=== PATIENT | male | born 1950 | race Caucasian/White ===

== ENCOUNTER 2018-06-13 04:13 | Observation (INO) | payer MEDICARE, OTHER, SELFPAY ==
[2018-06-13] VITALS (9 sets, daily range): BP systolic 101–145; BP diastolic 56–91; PULSE 45–89; RESP 16–19; TEMP 36.4–36.7; O2SAT 95–99; BMI 35.2
--- NOTE | 2018-06-13 | DI.ECHO.S_ITS ---
[facility] +---------+ [facility] +---------+ : : [address] [place] : : : : [id number] : : : : Phone: [phone]+ Echocardiogram Report + + :Name: GARLAND ROMERO Study Date: 06/13/2018 Height: 67 in : :[facility] Exam Location: IS Weight: 225 lb : : Gender: Male BSA: 2.1 m2 : :: 1950 Age: 67 yrs BP: 128/66 mmHg: :Reason For Study: Chest pain/ HTN/ Palpitations : :Ordering Physician: Imer : :Hospitalist Performed By: Rupa Page : :Referring: Dr. Bryan Curtis : + + Interpretation Summary The patient was in normal sinus rhythm during the exam. The patient had frequent PVCs during the exam. The left ventricle is normal in size. The ejection fraction is estimated to be 50-55%. There is a significant dyssynchronous contraction pattern, consistent with a conduction abnormality seen during PVCs. The right ventricle is normal in size and function. No significant valvular pathology seen. The ascending aorta is mildly enlarged. The IVC is of normal diameter and collapses greater than 50% with a sniff. This suggests a low right atrial pressure of 3 mm Hg. Procedure: A two-dimensional transthoracic echocardiogram with color flow and Doppler was performed. The study quality was technically adequate. There is no prior echocardiogram noted for this patient. The heart rate ranged between 63-77 bpm during the study. The patient was in normal sinus rhythm during the exam. The patient had frequent PVCs during the exam. Left Ventricle: There is normal left ventricular wall thickness. The left ventricle is normal in size. There is no thrombus. The ejection fraction is estimated to be 50-55%. There is a significant dyssynchronous contraction pattern, consistent with a conduction abnormality. Diastolic parameters suggest a relaxation abnormality of the left ventricle, consistent with probable normal filling pressures. Right Ventricle: The right ventricle is normal in size and function. Atria: The left atrium is mildly dilated. Right atrial size is normal. There is no Doppler evidence for an interatrial shunt. Mitral Valve: There is mild mitral annular calcification. There is trace mitral regurgitation. Aortic Valve: The aortic valve is trileaflet. The aortic valve opens well. There is no aortic valve stenosis. No aortic regurgitation is present. Tricuspid Valve: The tricuspid valve is normal in structure and function. There is a trace or physiologic amount of tricuspid regurgitation. Pulmonary artery pressures cannot be estimated because of the lack of a measurable TR jet velocity. Pulmonic Valve: The pulmonic valve is not well visualized. There is trace pulmonic regurgitation. Great Vessels: The aortic root is normal size. The ascending aorta is mildly enlarged. The pulmonary is not well visualized. The IVC is of normal diameter and collapses greater than 50% with a sniff. This suggests a low right atrial pressure of 3 mm Hg. Pericardium/ Pleura There is no pericardial effusion. There is no pleural effusion. MMode/2D Measurements & Calculations LVIDd: 4.9 cm LVOT diam: 2.1 cm LVIDs: 3.6 cm Ao root diam: 3.6 cm FS: 27.8 % asc Aorta Diam: 3.6 cm EPSS: 0.48 cm IVSd: 0.97 cm LVPWd: 0.75 cm LV schmitt. diameter/BSA (cm/m^2): 2.3 LV sys. diameter/BSA (cm/m^2): 1.7 LA A2 area: 22.7 cm2 RA long axis: 5.5 cm LA A4 area: 24.6 cm2 RA area: 15.2 cm2 LA length (vol): 6.0 cm RA vol: 35.5 ml LA vol: 79.0 ml RA : 16.7 ml/m2 LA vol index: 37.2 ml/m2 RVD1 (basal): 3.7 cm Doppler Measurements & Calculations Ao V2 max: 127.5 cm/sec LVOT Max Jerod: 65.3 cm/sec Ao V2 mean: 91.6 cm/sec LV V1 max P.7 mmHg Ao max P.5 mmHg LV V1 VTI: 13.8 cm Ao mean P.6 mmHg LITZY(I,D): 2.0 cm2 Ao V2 VTI: 23.9 cm LITZY(V,D): 1.8 cm2 sev ratio: 0.58 LITZY indexed to BSA (cm^2/m^2): 0.95 MV E max jerod: 51.3 cm/sec PA V2 max: 96.2 cm/sec MV A max jerod: 69.8 cm/sec PA V2 mean: 56.7 cm/sec MV E/A: 0.74 PA mean P.5 mmHg Med Peak E' Jerod: 4.7 cm/sec PA Accel Time: 0.08 sec E/E' med: 11.0 Lat Peak E' Jerod: 8.3 cm/sec E/E' lat: 6.2 E/e' average: 8.6 MV dec time: 0.25 sec MV P1/2t: 72.8 msec MV P1/2t max jerod: 51.0 cm/sec MVA(2t): 3.0 cm2 Reading Physician:VICTORINO
--- NOTE | 2018-06-13 04:36 | ED.CHESTPAIN ---
HPI - Chest Pain General Chief Complaint: Chest Pain Stated Complaint: little chest pressure x30 min Time Seen by Provider: 06/13/18 04:15 Source: patient and family Mode of arrival: ambulatory Limitations: no limitations History of Present Illness HPI narrative: 67-year-old nonsmoking male presents with his in the chief complaint of a sudden onset left-sided chest pressure with radiation down his left arm about 30 min prior to his arrival. He had just woken up and noticed the pressure. He describes it is heavy and aching. He denies provocation or palliation. He had a brief episode of a similar type pain yesterday in the afternoon. He admits to feeling dizzy and clammy at it's onset. He admits long distance travel over the summer when he and his flew to [place]. His last stress test was many years ago. He took a baby aspirin yesterday Related Data Home Medications Medication Instructions Recorded Confirmed atorvastatin [Lipitor] 40 mg PO QDAY #0 11/13/12 hydrochlorothiazide 25 mg PO QDAY #0 11/13/12 ramipril 10 mg PO QDAY #0 11/13/12 aspirin 81 mg PO DAILY 06/13/18 06/13/18 metoprolol tartrate 12.5 mg PO BID 06/13/18 06/13/18 Allergies Allergy/AdvReac Type Severity Reaction Status Date / Time No Known Drug Allergies Allergy Verified 06/13/18 04:24 PFSH Social History Smoking Status: Never smoker Exam Initial Vital Signs Initial Vital Signs: Vital Signs Temperature 97.5 F L 06/13/18 04:20 Pulse Rate 75 06/13/18 04:20 Respiratory Rate 18 06/13/18 04:20 Blood Pressure 145/91 H 06/13/18 04:20 Pulse Oximetry 99 06/13/18 04:20 Scores HEART Score Heart Score history: Moderately Suspicious Heart Score EKG: Non-Specific repolarization disturbance Heart Score Age: > or = 65 years old Heart Score risk factors: 1-2 risk factors Heart Score troponin: < or = to normal limit Heart Score Total: 5 Course Orders Ordered: ED Orders 06/13/18 04:25 EKG-12 Lead Stat Nitroglycerin (Nitrostat) 0.4 mg SL [id number] PRN PRN Reason: Chest Pain Last Admin: 06/13/18 04:49 Dose: 0.4 mg Discontinued Medications Aspirin (Aspirin Chew) 324 mg PO NOW ONE Stop: 06/13/18 04:44 Last Admin: 06/13/18 04:48 Dose: 324 mg Reevaluation(s) Reevaluation #1: patient pain free after NG 0.4 x1 Time: 04:52 Vital Signs - 8 hr 06/13/18 04:20 06/13/18 04:49 Temperature 97.5 F L Pulse Rate 75 75 Respiratory Rate 18 Blood Pressure 145/91 H 130/79 Pulse Oximetry 99 MDM - Chest Pain Differential Diagnosis Likely stable angina, unstable angina pectoris, atypical chest pain and st elevation myocardial infarction Medical Records Data Attestation: I reviewed the patient's medical records. Lab Data Attestation: I reviewed the patient's lab results. ECG Data Attestation: I personally reviewed and interpreted this ECG as follows: Prior ECG tracings: not available for review Discharge Plan Departure Patient Disposition: Admitted as Observation Clinical Impression: Chest pain
[2018-06-13] MEDS: ASPIRIN 81 MG TAB 324 MG PO (04:48)
[2018-06-13] MEDS: NITROGLYCERIN 0.4 MG SL TAB SL (04:49)
--- NOTE | 2018-06-13 05:19 | DI.RAD.S_ITS ---
PROCEDURE: XR CHEST 1V INDICATIONS: pain TECHNIQUE: One view of the chest was acquired. COMPARISON: None. FINDINGS: Surgical changes and devices: None. Lungs and pleura: No pleural effusions or pneumothorax. Lungs are clear. Mediastinum: Mediastinal contours appear normal. Heart size is normal. Bones and chest wall: No suspicious bony lesions. Overlying soft tissues appear unremarkable. IMPRESSION: Reduced inspiratory volume, otherwise normal for age, source of current symptoms is not seen. Dictated by: Javier Malhotra M.D. on 06/13/2018 at 8:10 Approved by: Javier Malhotra M.D. on 06/13/2018 at 8:10
[2018-06-13] MEDS: SODIUM CHLORIDE 0.9% 1,000 ML 150 ML IV (05:26)
[2018-06-13 05:27] LABS: Add Manual Diff / Slide Review NO; Basophils Percent Auto 0.8 % (0-2); Hematocrit 46.4 % (41-53); Hemoglobin 15.8 g/dL (13.5-17.5); Lymphocytes Percent Auto 55.8 % (25-40); Mean Corpuscular HGB Conc 33.9 % (30-36); Mean Corpuscular Hemoglobin 30.1 PG (26-34); Mean Corpuscular Volume 88.6 fL (80-100); Monocytes Percent Auto 8.9 % (3-14); Neutrophils Absolute Auto 2400 /uL (3000-5900); Neutrophils Percent Auto 31.5 % (50-75); Platelet Count 228 X10^3/uL (150-400); Red Blood Cell Count 5.24 X10^6/uL (4.5-5.9); Red Cell Distribution Width 13.3 % (11.6-14.8); White Blood Cell Count 7.7 X10^3/uL (4.5-11.0)
[2018-06-13 05:37] LABS: Alanine Aminotransferase 42 IU/L (21-72); Albumin 4.2 g/dL (3.5-5.0); Albumin Globulin Ratio 1.3 (1.0-2.8); Alkaline Phosphatase 65 U/L (38-126); Aspartate Aminotransferase 29 IU/L (17-59); Bilirubin Total 0.6 mg/dL (0.2-1.3); Blood Urea Nitrogen 29 mg/dL (9-20); Calcium 8.7 mg/dL (8.4-10.2); Carbon Dioxide 25 mmol/L (22-32); Chloride 102 mmol/L (98-107); Creatine Kinase 96 U/L (55-170); Estimated Glomerular Filt Rate > 60.0 mL/min (>60); Globulin 3.2 g/dL (1.7-4.1); Glucose 115 mg/dL (80-110); HEMOLYSIS 25 (0-50); Lipase 167 U/L (23-300); Sodium 139 mmol/L (137-145); Total Protein 7.4 g/dL (6.3-8.2)
[2018-06-13 05:49] LABS: Troponin I < 0.012 ng/mL (0.01-0.034)
--- NOTE | 2018-06-13 06:49 | PM.HP.1 ---
History of Present Illness Date Patient Seen: 06/13/18 Chief complaint: little chest pressure x30 min Narrative: The patient is a 67-year-old male who presented to the ED with sudden onset of chest discomfort. Localized to the left aspect of the chest with radiation to the left arm. Pain is described to have pressure quality. Magnitude 3/10. The pain radiated to left shoulder and mid-forearm (no numbness or tingling). Prior to CP onset patient was sleeping. He woke up to use the restroom (was not awakened by chest discomfort). Associated symptoms include dizziness, sensation of an abnormal heart beat, and diaphoresis. Denies dyspnea, lightheadedness, disorientation, nausea or vomiting. patient experienced similar chest discomfort yesterday and intermittently in the past week; however, these were not associated with dizziness, palpitations, or diaphoresis. Typically last 1-2 hours then self-resolved. Patient has been experiencing intermittent periods of palpitations or an irregular heart rhythm for sometime. Recent been told by his PCP that his heart is skiping a beat. PMH is significant for HTN (dx 18yrs ago, mildly elevated), HLD (poorly controlled) and obesity (BMI 35). He does take baby aspirin daily. No prior history of an [place] or other cardiac events. Family history significant for hypertension. Patient had a stress test and an echo, 6 yrs ago prior to back surgery. [employer] on ASA 81 mg daily, ACEi, BB, and statin. Does not follow w/ cardiology. Patient History Family & Social History Safety & Behavioral: Feels Safe in Current Yes Environment Been Physically Hurt or No Threatened By a Person Tobacco & Substance use: Smoking Status Never smoker alcohol intake frequency 0-2 drinks per day no drug use Meds Home Medications Medication Instructions Recorded Confirmed Type atorvastatin [Lipitor] 40 mg PO QDAY #0 11/13/12 06/13/18 History hydrochlorothiazide 37.5 mg PO QDAY #0 11/13/12 06/13/18 History ramipril 10 mg PO QDAY #0 11/13/12 06/13/18 History aspirin 81 mg PO DAILY 06/13/18 06/13/18 History metoprolol tartrate 12.5 mg PO BID 06/13/18 06/13/18 History Allergies Allergy/AdvReac Type Severity Reaction Status Date / Time No Known Drug Allergies Allergy Verified 06/13/18 04:24 Review of Systems Review of Systems All systems reviewed & are unremarkable except as noted in HPI and below Exam Vital Signs (past 8 hours): - 06/13/18 04:20 06/13/18 04:49 06/13/18 04:55 Temperature 97.5 F L Pulse Rate 75 75 89 Respiratory Rate 18 Blood Pressure 145/91 H 130/79 115/79 Blood Pressure [Right Arm] Pulse Oximetry 99 06/13/18 05:00 06/13/18 05:51 06/13/18 06:11 Temperature 97.7 F Pulse Rate 72 75 58 L Respiratory Rate 16 18 16 Blood Pressure 128/66 Blood Pressure [Right Arm] 120/74 101/70 Pulse Oximetry 95 98 97 Oxygen Delivery Method Room Air Narrative Exam Narrative: Constitutional: NAD Neurologic: AOx3, no focal neurological deficits Head: NC, AT Eyes: PERRL, EOMI, Ears: external ears normal, no otorrhea Nose: external nose normal, no rhinorrhea or epistaxis Throat: MMM, oropharynx w/o exudate Neck: no masses, lymphadenopathy, or JVD Chest / Respiratory: equal chest rise, unlabored respiratory effort, no tachypnea, CTAB Heart / CV: S1S2, fairly frequent ectopic beats, no murmur Abdomen / GI: round, NT, ND, + BS, no organomegaly : no suprapubic tenderness, no CVA Peripheral / Vascular: warm to touch, DP and PT pulses palpable, no edema Musc: full ROM of upper and lower extremities, adequate muscle tone and bulk Skin: no ecchymosis or suspicious lesions / ulcers Objective Labs Result Diagrams: 06/13/18 04:20 06/13/18 04:20 Labs: Laboratory Results - last 24 hr 06/13/18 06/13/18 04:20 04:20 WBC 7.7 RBC 5.24 Hgb 15.8 Hct 46.4 MCV 88.6 MCH 30.1 MCHC 33.9 RDW 13.3 Plt Count 228 Neut % (Auto) 31.5 L Lymph % (Auto) 55.[address] [facility] % (Auto) 8.9 Eos % (Auto) 3.0 Baso % (Auto) 0.8 Neut # (Auto) 2400 L Sodium 139 Potassium 4.0 Chloride 102 Carbon Dioxide 25 BUN 29 H Creatinine 1.00 Estimated GFR > 60.0 BUN/Creatinine Ratio 29.0 H Glucose 115 H Calcium 8.7 Total Bilirubin 0.6 AST 29 ALT 42 Alkaline Phosphatase 65 Total Creatine Kinase 96 CK-MB (CK-2) TNP CK-MB (CK-2) Rel Index TNP Troponin I < 0.012 Total Protein 7.4 Albumin 4.2 Globulin 3.2 Albumin/Globulin Ratio 1.3 Lipase 167 Assessment & Plan Plan: Assessment/Plan Narrative: Chest pain Initial troponin negative and EKG nonischemic. No overt e-lyte abnormalities. HEART score of 5 (heart hx +1, EKG non-specific 1+, age 2+, RF 1+) Received 325 ASA in ED. CP responsive to nitro. - telemetry monitoring - trend troponins - EKG with acute episode of chest pain - echocardiogram, stress test - risk stratify: A1C, FLP - continue ASA 81 mg QD, BB, and ACEi - NPO for stress test - CXR pending Palpitations - echo - check TSH HTN, suboptimally controlled, 140/85 at home (by report) - resume [employer] ACEi and BB - on metoprolol 12.5 mg BID, will trend BP and HR, consider increasing to 25 mg BID - hold hctz, has a tendency towards e-lyte depletion, which could potentiate an arrythmia - K is 4, will check Mg HLD, poorly controlled per patient's history - continue statin, may need to change to another more potent statin - FLP Obesity, BMI 35 - weight reduction and lifestyle modification encouraged
--- NOTE | 2018-06-13 07:04 | P.HP_ITS ---
History of Present Illness Date Patient Seen: 06/13/18 Chief complaint: little chest pressure x30 min Narrative: The patient is a 67-year-old male who presented to the ED with sudden onset of chest discomfort. Localized to the left aspect of the chest with radiation to the left arm. Pain is described to have pressure quality. Magnitude 3/10. The pain radiated to left shoulder and mid-forearm ( no numbness or tingling). Prior to CP onset patient was sleeping. He woke up to use the restroom (was not awakened by chest discomfort). Associated symptoms include dizziness, sensation of an abnormal heart beat, and diaphoresis. Denies dyspnea, lightheadedness, disorientation, nausea or vomiting. patient experienced similar chest discomfort yesterday and intermittently in the past week; however, these were not associated with dizziness, palpitations, or diaphoresis. Typically last 1-2 hours then self- resolved. Patient has been experiencing intermittent periods of palpitations or an irregular heart rhythm for sometime. Recent been told by his PCP that his heart is skiping a beat. PMH is significant for HTN (dx 18yrs ago, mildly elevated), HLD (poorly controlled) and obesity (BMI 35). He does take baby aspirin daily. No prior history of an [place] or other cardiac events. Family history significant for hypertension. Patient had a stress test and an echo, 6 yrs ago prior to back surgery. [employer] on ASA 81 mg daily, ACEi, BB, and statin. Does not follow w/ cardiology. Patient History Family & Social History Safety & Behavioral: Feels Safe in Current Yes Environment Been Physically Hurt or No Threatened By a Person Tobacco & Substance use: Smoking Status Never smoker alcohol intake frequency 0-2 drinks per day no drug use Meds Home Medications Medication Instructions Recorded Confirmed Type atorvastatin [Lipitor] 40 mg PO QDAY #0 11/13/12 06/13/18 History hydrochlorothiazide 37.5 mg PO QDAY #0 11/13/12 06/13/18 History ramipril 10 mg PO QDAY #0 11/13/12 06/13/18 History aspirin 81 mg PO DAILY 06/13/18 06/13/18 History metoprolol tartrate 12.5 mg PO BID 06/13/18 06/13/18 History Allergies Allergy/AdvReac Type Severity Reaction Status Date / Time No Known Drug Allergies Allergy Verified 06/13/18 04:24 Review of Systems Review of Systems All systems reviewed & are unremarkable except as noted in HPI and below Exam Vital Signs (past 8 hours): - 06/13/18 04:20 06/13/18 04:49 06/13/18 04:55 Temperature 97.5 F L Pulse Rate 75 75 89 Respiratory Rate 18 Blood Pressure 145/91 H 130/79 115/79 Blood Pressure [Right Arm] Pulse Oximetry 99 06/13/18 05:00 06/13/18 05:51 06/13/18 06:11 Temperature 97.7 F Pulse Rate 72 75 58 L Respiratory Rate 16 18 16 Blood Pressure 128/66 Blood Pressure [Right Arm] 120/74 101/70 Pulse Oximetry 95 98 97 Oxygen Delivery Method Room Air Narrative Exam Narrative: Constitutional: NAD Neurologic: AOx3, no focal neurological deficits Head: NC, AT Eyes: PERRL, EOMI, Ears: external ears normal, no otorrhea Nose: external nose normal, no rhinorrhea or epistaxis Throat: MMM, oropharynx w/o exudate Neck: no masses, lymphadenopathy, or JVD Chest / Respiratory: equal chest rise, unlabored respiratory effort, no tachypnea, CTAB Heart / CV: S1S2, fairly frequent ectopic beats, no murmur Abdomen / GI: round, NT, ND, + BS, no organomegaly : no suprapubic tenderness, no CVA Peripheral / Vascular: warm to touch, DP and PT pulses palpable, no edema Musc: full ROM of upper and lower extremities, adequate muscle tone and bulk Skin: no ecchymosis or suspicious lesions / ulcers Objective Labs Result Diagrams: 06/13/18 04:20 06/13/18 04:20 Labs: Laboratory Results - last 24 hr 06/13/18 06/13/18 04:20 04:20 WBC 7.7 RBC 5.24 Hgb 15.8 Hct 46.4 MCV 88.6 MCH 30.1 MCHC 33.9 RDW 13.3 Plt Count 228 Neut % (Auto) 31.5 L Lymph % (Auto) 55.8 H [place] % (Auto) 8.9 Eos % (Auto) 3.0 Baso % (Auto) 0.8 Neut # (Auto) 2400 L Sodium 139 Potassium 4.0 Chloride 102 Carbon Dioxide 25 BUN 29 H Creatinine 1.00 Estimated GFR > 60.0 BUN/Creatinine Ratio 29.0 H Glucose 115 H Calcium 8.7 Total Bilirubin 0.6 AST 29 ALT 42 Alkaline Phosphatase 65 Total Creatine Kinase 96 CK-MB (CK-2) TNP CK-MB (CK-2) Rel Index TNP Troponin I < 0.012 Total Protein 7.4 Albumin 4.2 Globulin 3.2 Albumin/Globulin Ratio 1.3 Lipase 167 Assessment & Plan Plan: Assessment/Plan Narrative: Chest pain Initial troponin negative and EKG nonischemic. No overt e-lyte abnormalities. HEART score of 5 (heart hx +1, EKG non-specific 1+, age 2+, RF 1+) Received 325 ASA in ED. CP responsive to nitro. - telemetry monitoring - trend troponins - EKG with acute episode of chest pain - echocardiogram, stress test - risk stratify: A1C, FLP - continue ASA 81 mg QD, BB, and ACEi - NPO for stress test - CXR pending Palpitations - echo - check TSH HTN, suboptimally controlled, 140/85 at home (by report) - resume [employer] ACEi and BB - on metoprolol 12.5 mg BID, will trend BP and HR, consider increasing to 25 mg BID - hold hctz, has a tendency towards e-lyte depletion, which could potentiate an arrythmia - K is 4, will check Mg HLD, poorly controlled per patient's history - continue statin, may need to change to another more potent statin - FLP Obesity, BMI 35 - weight reduction and lifestyle modification encouraged
[2018-06-13] MEDS: RAMIPRIL 5 MG CAPSULE 10 MG PO (08:28)
[2018-06-13] MEDS: ATORVASTATIN 20 MG TABLET 40 MG PO (08:28)
[2018-06-13] MEDS: HEPARIN 5,000 UNIT/ML VIAL 5000 UNIT SUBCUT (08:30)
[2018-06-13] MEDS: METOPROLOL IR 12.5 MG TABLET PO (08:31)
[2018-06-13 08:50] LABS: Hemoglobin A1C% w Est Avg Glu 6.1 % (4.0-6.0)
[2018-06-13 08:57] LABS: Cholesterol 170 mg/dL (140-199); HDL Cholesterol 34 mg/dL (40-60); LDL Cholesterol Calculated 97 mg/dL (<100); Triglycerides 196 mg/dL (35-150)
[2018-06-13 08:59] LABS: Magnesium 2.1 mg/dL (1.6-2.3)
--- NOTE | 2018-06-13 09:05 | CM.DANOTE ---
Discharge Planning/Care Management DCP: assessment: case received, EMR reviewed and met with pt. Introduced self and role. Pt is a 67 year old male who admitted early this mornin to care of hospitalist team. Payer: Medicare and [employer] PCP: Dr. Curtis. PT with s/s chest pain radiating to L arm, per H&P. Plan was for NPO and stress test today. Pt says he just saw the physician and was told that there was no availability at for this test today. He is waiting for further clarity re POC. If home today and outpt testing he says his will be picking him up. P: follow prn as POC unfolds. CM Discharge Assessment Start: 06/13/18 09:04 Freq: Status: Active Protocol: Document 06/13/18 09:04 ITV (Rec: 06/13/18 09:05 ITV [id number]) Discharge Planning Assessment Advance Directives? Yes History Provided By Patient Medical Record Prior Living Arrangements House Household Members spouse Independent with ADL's Yes Is patient alert and oriented? Yes Whiteboard Updated in Patient Room with Yes name and ext. # of Scrapper Review Status In Process Next Review Type Continued Stay Review
[2018-06-13 09:26] LABS: Thyroid Stimulating Hormone 1.95 uIU/mL (0.47-4.68)
[2018-06-13 10:53] LABS: Troponin I < 0.012 ng/mL (0.01-0.034)
--- NOTE | 2018-06-13 12:07 | PM.DS.1 ---
History of Present Illness Date Patient Seen: 06/13/18 Time Patient Seen: 12:08 Chief complaint: little chest pressure x30 min Narrative: 67-year-old male who presented to the ED with sudden onset of chest discomfort. Localized to the left aspect of the chest with radiation to the left arm. Pain is described to have pressure quality. Magnitude 3/10. The pain radiated to left shoulder and mid-forearm (no numbness or tingling). Prior to CP onset patient was sleeping. He woke up to use the restroom (was not awakened by chest discomfort). Associated symptoms include dizziness, sensation of an abnormal heart beat, and diaphoresis. Denies dyspnea, lightheadedness, disorientation, nausea or vomiting. Patient experienced similar chest discomfort the day before admission and intermittently in the week prior; however, these were not associated with dizziness, palpitations, or diaphoresis. Typically last 1-2 hours then self-resolved. Patient has been experiencing intermittent periods of palpitations or an irregular heart rhythm for sometime. Recent been told by his PCP that his heart is skiping a beat. PMH is significant for HTN (dx 18yrs ago, mildly elevated), HLD (poorly controlled) and obesity (BMI 35). He does take baby aspirin daily. No prior history of an [place] or other cardiac events. Family history significant for hypertension. Patient had a stress test and an echo, 6 yrs ago prior to back surgery. 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 Does not follow w/ cardiology. Discharge Providers Date of admission: 06/13/18 06:08 Primary care physician: Bryan Curtis MD Discharge provider: Chelsi Doe MD Discharge Date: 06/13/18 Summary Discharge Diagnosis: Chest pain, ACS ruled out Hypertension, stable Hyperlipidemia, stable Hospital Course: In the emergency department, patient's vital signs were stable. Patient was given nitroglycerin sublingual as well as 325 mg of aspirin, with resolution of chest pain. Heart score calculated to be 5. Lab work revealed hemoglobin 15.8, hematocrit 46.4, WBCs 7.7, platelets 228. Sodium 139, potassium 4.0, chloride 102, bicarb 25, BUN 29, creatinine 1.0, glucose 115. First set of troponin was negative. EKG showed sinus rhythm with occasional PVCs, with P no ST changes. Chest x-ray revealed no acute cardiac findings. Patient was admitted for further ACS rule out. Once on the general medical floors, the next 2 set of troponins and EKG were negative. Hemoglobin A1c was slightly elevated at 6.1, prediabetic range . TSH was normal at 1.95 . Lipid panel revealed triglycerides at 196, cholesterol 170, LDL 97, and HDL 34. Patient remained pain free throughout the hospital stay. Echocardiogram was performed. Due to the holidays, stressed test was unable to be performed, and patient wished to be discharged and get stress test done on the outpatient basis. Given the patient is in no acute coronary syndrome, patient is stable for discharge with outpatient referral for stress test and follow up to primary care doctor for results of echo and stress test and further management of possible CAD, if diagnosed. Patient is to resume his aspirin, beta-mounika, TASHI-inhibitor, and atorvastatin. Status at Discharge Functional status at discharge: independent ambulation Overall status at discharge: patient is back to baseline Time Spent with Patient Less than 30 minutes Exam Vital Signs (past 8 hours): - 06/13/18 04:20 06/13/18 04:49 06/13/18 04:55 Temperature 97.5 F L Pulse Rate 75 75 89 Respiratory Rate 18 Blood Pressure 145/91 H 130/79 115/79 Blood Pressure [Right Arm] Pulse Oximetry 99 06/13/18 05:00 06/13/18 05:51 06/13/18 06:11 Temperature 97.7 F Pulse Rate 72 75 58 L Respiratory Rate 16 18 16 Blood Pressure 128/66 Blood Pressure [Right Arm] 120/74 101/70 Pulse Oximetry 95 98 97 06/13/18 07:45 06/13/18 11:42 Temperature 97.6 F 98.1 F Pulse Rate 45 L 68 Respiratory Rate 16 16 Blood Pressure 133/67 119/56 L Blood Pressure [Right Arm] Pulse Oximetry 96 97 Oxygen Delivery Method Room Air Narrative Exam Narrative: Constitutional: NAD Neurologic: AOx3, no focal neurological deficits Head: NC, AT Eyes: PERRL, EOMI, Ears: external ears normal, no otorrhea Nose: external nose normal, no rhinorrhea or epistaxis Throat: MMM, oropharynx w/o exudate Neck: no masses, lymphadenopathy, or JVD Chest / Respiratory: equal chest rise, unlabored respiratory effort, no tachypnea, CTAB Heart / CV: S1S2, fairly frequent ectopic beats, no murmur Abdomen / GI: round, NT, ND, + BS, no organomegaly : no suprapubic tenderness, no CVA Peripheral / Vascular: warm to touch, DP and PT pulses palpable, no edema Musc: full ROM of upper and lower extremities, adequate muscle tone and bulk Skin: no ecchymosis or suspicious lesions / ulcers Objective Labs Result Diagrams: 06/13/18 04:20 06/13/18 04:20 Labs: Laboratory Results - last 24 hr 06/13/18 06/13/18 06/13/18 04:20 04:20 06:47 WBC 7.7 RBC 5.24 Hgb 15.8 Hct 46.4 MCV 88.6 MCH 30.1 MCHC 33.9 RDW 13.3 Plt Count 228 Neut % (Auto) 31.5 L Lymph % (Auto) 55.8 H [place] % (Auto) 8.9 Eos % (Auto) 3.0 Baso % (Auto) 0.8 Neut # (Auto) 2400 L Sodium 139 Potassium 4.0 Chloride 102 Carbon Dioxide 25 BUN 29 H Creatinine 1.00 Estimated GFR > 60.0 BUN/Creatinine Ratio 29.0 H Glucose 115 H Hemoglobin A1c 6.1 H Calcium 8.7 Magnesium Total Bilirubin 0.6 AST 29 ALT 42 Alkaline Phosphatase 65 Total Creatine Kinase 96 CK-MB (CK-2) TNP CK-MB (CK-2) Rel Index TNP Troponin I < 0.012 Total Protein 7.4 Albumin 4.2 Globulin 3.2 Albumin/Globulin Ratio 1.3 Triglycerides Cholesterol LDL Cholesterol, Calc HDL Cholesterol Lipase 167 TSH 06/13/18 06/13/18 06/13/18 06:47 07:28 10:03 WBC RBC Hgb Hct MCV MCH MCHC RDW Plt Count Neut % (Auto) Lymph % (Auto) [place] % (Auto) Eos % (Auto) Baso % (Auto) Neut # (Auto) Sodium Potassium Chloride Carbon Dioxide BUN Creatinine Estimated GFR BUN/Creatinine Ratio Glucose Hemoglobin A1c Calcium Magnesium Total Bilirubin AST ALT Alkaline Phosphatase Total Creatine Kinase CK-MB (CK-2) CK-MB (CK-2) Rel Index Troponin I < 0.012 Total Protein Albumin Globulin Albumin/Globulin Ratio Triglycerides 196 H Cholesterol 170 LDL Cholesterol, Calc 97 HDL Cholesterol 34 L Lipase TSH 1.95 06/13/18 Unknown WBC RBC Hgb Hct MCV MCH MCHC RDW Plt Count Neut % (Auto) Lymph % (Auto) [place] % (Auto) Eos % (Auto) Baso % (Auto) Neut # (Auto) Sodium Potassium Chloride Carbon Dioxide BUN Creatinine Estimated GFR BUN/Creatinine Ratio Glucose Hemoglobin A1c Calcium Magnesium 2.1 Total Bilirubin AST ALT Alkaline Phosphatase Total Creatine Kinase CK-MB (CK-2) CK-MB (CK-2) Rel Index Troponin I Total Protein Albumin Globulin Albumin/Globulin Ratio Triglycerides Cholesterol LDL Cholesterol, Calc HDL Cholesterol Lipase TSH Discharge Plan Discharge Plan Patient Disposition: Home Discharge Med Rec/Prescriptions Prescriptions: New nitroglycerin [Nitrostat] 0.4 mg Tablet, Sublingual 0.4 mg Sublingual [id number] PRN (Reason: Chest Pain) Qty: 30 RF: 0 Continue hydrochlorothiazide 25 MG tablet 37.5 mg PO QDAY Qty: 0 RF: 0 ramipril 10 MG capsule 10 mg PO QDAY Qty: 0 RF: 0 atorvastatin [Lipitor] 40 MG tablet 40 mg PO QDAY Qty: 0 RF: 0 metoprolol tartrate 25 mg Tablet 12.5 mg PO BID RF: 0 aspirin 81 mg Tablet,Delayed Release (Dr/Ec) 81 mg PO DAILY RF: 0 Follow up/Referrals: Bryan Curtis MD [Primary Care Provider] - Provider Discharge Instructions Diet: Low-sodium and Low-cholesterol Visit Report/Discharge Packet Instructions: Cardiac Stress Test, DI for Chest Pain, Nitroglycerin Sublingual Visit Report Forms: Stroke Signs & Symptoms Discharge Data Primary Care Provider: Bryan Curtis V Attending Provider: Sylwia Way Admit Date/Time: 06/13/18 06:08 Quality VTE Deep Vein Thrombosis/Pulmonary Embolism Present on Admission: No
--- NOTE | 2018-06-13 12:10 | P.DS_ITS ---
History of Present Illness Date Patient Seen: 06/13/18 Time Patient Seen: 12:08 Chief complaint: little chest pressure x30 min Narrative: 67-year-old male who presented to the ED with sudden onset of chest discomfort. Localized to the left aspect of the chest with radiation to the left arm. Pain is described to have pressure quality. Magnitude 3/10. The pain radiated to left shoulder and mid-forearm (no numbness or tingling). Prior to CP onset patient was sleeping. He woke up to use the restroom (was not awakened by chest discomfort). Associated symptoms include dizziness, sensation of an abnormal heart beat, and diaphoresis. Denies dyspnea, lightheadedness, disorientation, nausea or vomiting. Patient experienced similar chest discomfort the day before admission and intermittently in the week prior; however, these were not associated with dizziness, palpitations, or diaphoresis. Typically last 1-2 hours then self- resolved. Patient has been experiencing intermittent periods of palpitations or an irregular heart rhythm for sometime. Recent been told by his PCP that his heart is skiping a beat. PMH is significant for HTN (dx 18yrs ago, mildly elevated), HLD (poorly controlled) and obesity (BMI 35). He does take baby aspirin daily. No prior history of an [place] or other cardiac events. Family history significant for hypertension. Patient had a stress test and an echo, 6 yrs ago prior to back surgery. 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 Does not follow w/ cardiology. Discharge Providers Date of admission: 06/13/18 06:08 Primary care physician: Bryan Curtis MD Discharge provider: Chelsi Doe MD Discharge Date: 06/13/18 Summary Discharge Diagnosis: Chest pain, ACS ruled out Hypertension, stable Hyperlipidemia, stable Hospital Course: In the emergency department, patient's vital signs were stable. Patient was given nitroglycerin sublingual as well as 325 mg of aspirin , with resolution of chest pain. Heart score calculated to be 5. Lab work revealed hemoglobin 15.8, hematocrit 46.4, WBCs 7.7, platelets 228. Sodium 139 , potassium 4.0, chloride 102, bicarb 25, BUN 29, creatinine 1.0, glucose 115. First set of troponin was negative. EKG showed sinus rhythm with occasional PVCs, with P no ST changes. Chest x-ray revealed no acute cardiac findings. Patient was admitted for further ACS rule out. Once on the general medical floors, the next 2 set of troponins and EKG were negative. Hemoglobin A1c was slightly elevated at 6.1, prediabetic range . TSH was normal at 1.95 . Lipid panel revealed triglycerides at 196, cholesterol 170, LDL 97, and HDL 34. Patient remained pain free throughout the hospital stay. Echocardiogram was performed. Due to the holidays, stressed test was unable to be performed, and patient wished to be discharged and get stress test done on the outpatient basis. Given the patient is in no acute coronary syndrome, patient is stable for discharge with outpatient referral for stress test and follow up to primary care doctor for results of echo and stress test and further management of possible CAD, if diagnosed. Patient is to resume his aspirin, beta-mounika, TASHI-inhibitor, and atorvastatin. Status at Discharge Functional status at discharge: independent ambulation Overall status at discharge: patient is back to baseline Time Spent with Patient Less than 30 minutes Exam Vital Signs (past 8 hours): - 06/13/18 04:20 06/13/18 04:49 06/13/18 04:55 Temperature 97.5 F L Pulse Rate 75 75 89 Respiratory Rate 18 Blood Pressure 145/91 H 130/79 115/79 Blood Pressure [Right Arm] Pulse Oximetry 99 06/13/18 05:00 06/13/18 05:51 06/13/18 06:11 Temperature 97.7 F Pulse Rate 72 75 58 L Respiratory Rate 16 18 16 Blood Pressure 128/66 Blood Pressure [Right Arm] 120/74 101/70 Pulse Oximetry 95 98 97 06/13/18 07:45 06/13/18 11:42 Temperature 97.6 F 98.1 F Pulse Rate 45 L 68 Respiratory Rate 16 16 Blood Pressure 133/67 119/56 L Blood Pressure [Right Arm] Pulse Oximetry 96 97 Oxygen Delivery Method Room Air Narrative Exam Narrative: Constitutional: NAD Neurologic: AOx3, no focal neurological deficits Head: NC, AT Eyes: PERRL, EOMI, Ears: external ears normal, no otorrhea Nose: external nose normal, no rhinorrhea or epistaxis Throat: MMM, oropharynx w/o exudate Neck: no masses, lymphadenopathy, or JVD Chest / Respiratory: equal chest rise, unlabored respiratory effort, no tachypnea, CTAB Heart / CV: S1S2, fairly frequent ectopic beats, no murmur Abdomen / GI: round, NT, ND, + BS, no organomegaly : no suprapubic tenderness, no CVA Peripheral / Vascular: warm to touch, DP and PT pulses palpable, no edema Musc: full ROM of upper and lower extremities, adequate muscle tone and bulk Skin: no ecchymosis or suspicious lesions / ulcers Objective Labs Result Diagrams: 06/13/18 04:20 06/13/18 04:20 Labs: Laboratory Results - last 24 hr 06/13/18 06/13/18 06/13/18 04:20 04:20 06:47 WBC 7.7 RBC 5.24 Hgb 15.8 Hct 46.4 MCV 88.6 MCH 30.1 MCHC 33.9 RDW 13.3 Plt Count 228 Neut % (Auto) 31.5 L Lymph % (Auto) 55.8 H [place] % (Auto) 8.9 Eos % (Auto) 3.0 Baso % (Auto) 0.8 Neut # (Auto) 2400 L Sodium 139 Potassium 4.0 Chloride 102 Carbon Dioxide 25 BUN 29 H Creatinine 1.00 Estimated GFR > 60.0 BUN/Creatinine Ratio 29.0 H Glucose 115 H Hemoglobin A1c 6.1 H Calcium 8.7 Magnesium Total Bilirubin 0.6 AST 29 ALT 42 Alkaline Phosphatase 65 Total Creatine Kinase 96 CK-MB (CK-2) TNP CK-MB (CK-2) Rel Index TNP Troponin I < 0.012 Total Protein 7.4 Albumin 4.2 Globulin 3.2 Albumin/Globulin Ratio 1.3 Triglycerides Cholesterol LDL Cholesterol, Calc HDL Cholesterol Lipase 167 TSH 06/13/18 06/13/18 06/13/18 06:47 07:28 10:03 WBC RBC Hgb Hct MCV MCH MCHC RDW Plt Count Neut % (Auto) Lymph % (Auto) [place] % (Auto) Eos % (Auto) Baso % (Auto) Neut # (Auto) Sodium Potassium Chloride Carbon Dioxide BUN Creatinine Estimated GFR BUN/Creatinine Ratio Glucose Hemoglobin A1c Calcium Magnesium Total Bilirubin AST ALT Alkaline Phosphatase Total Creatine Kinase CK-MB (CK-2) CK-MB (CK-2) Rel Index Troponin I < 0.012 Total Protein Albumin Globulin Albumin/Globulin Ratio Triglycerides 196 H Cholesterol 170 LDL Cholesterol, Calc 97 HDL Cholesterol 34 L Lipase TSH 1.95 06/13/18 Unknown WBC RBC Hgb Hct MCV MCH MCHC RDW Plt Count Neut % (Auto) Lymph % (Auto) [place] % (Auto) Eos % (Auto) Baso % (Auto) Neut # (Auto) Sodium Potassium Chloride Carbon Dioxide BUN Creatinine Estimated GFR BUN/Creatinine Ratio Glucose Hemoglobin A1c Calcium Magnesium 2.1 Total Bilirubin AST ALT Alkaline Phosphatase Total Creatine Kinase CK-MB (CK-2) CK-MB (CK-2) Rel Index Troponin I Total Protein Albumin Globulin Albumin/Globulin Ratio Triglycerides Cholesterol LDL Cholesterol, Calc HDL Cholesterol Lipase TSH Discharge Plan Discharge Plan Patient Disposition: Home Discharge Med Rec/Prescriptions Prescriptions: New nitroglycerin [Nitrostat] 0.4 mg Tablet, Sublingual 0.4 mg Sublingual [id number] PRN (Reason: Chest Pain) Qty: 30 RF: 0 Continue hydrochlorothiazide 25 MG tablet 37.5 mg PO QDAY Qty: 0 RF: 0 ramipril 10 MG capsule 10 mg PO QDAY Qty: 0 RF: 0 atorvastatin [Lipitor] 40 MG tablet 40 mg PO QDAY Qty: 0 RF: 0 metoprolol tartrate 25 mg Tablet 12.5 mg PO BID RF: 0 aspirin 81 mg Tablet,Delayed Release (Dr/Ec) 81 mg PO DAILY RF: 0 Follow up/Referrals: Bryan Curtis MD [Primary Care Provider] - Provider Discharge Instructions Diet: Low-sodium and Low-cholesterol Visit Report/Discharge Packet Instructions: Cardiac Stress Test, DI for Chest Pain, Nitroglycerin Sublingual Visit Report Forms: Stroke Signs & Symptoms Discharge Data Primary Care Provider: Bryan Curtis V Attending Provider: Sylwia Way Admit Date/Time: 06/13/18 06:08 Quality VTE Deep Vein Thrombosis/Pulmonary Embolism Present on Admission: No
[2018-06-13 15:24] LABS: Troponin I < 0.012 ng/mL (0.01-0.034)
--- NOTE | 2018-06-13 18:00 | PC.NURSE ---
DISCHARGE Received pt sitting up in chair. A&Ox3, pleasant and cooperative with care. independent with ADLs. pt denies any chest pain, SOB, dizzness, or N/V. echo completed at approximately 1730. referral order faxed to imaging department to assist with scheduling for outpt stress test, original order given to pt. nitro prescription given to pt as well. d/c instructions reviewed with pt and pt's spouse. pt off unit at approximately 1800, preferred to walk, accompanied by TOY MAKER.
== END 2018-06-13 18:00 | disposition home or self-care (01) ==
LOC: ED 04:50 → AC 06:26
PROVIDERS: Admitting Provider Nurse Practitioner Gerontology; Emergency Provider Emergency Medicine; Family Provider Internal Medicine; PCP Internal Medicine; Visit Provider Nurse Practitioner Gerontology
DX: R07.9 Chest pain, unspecified (principal); I10 Essential (primary) hypertension; E78.5 Hyperlipidemia, unspecified; E66.9 Obesity, unspecified; Z68.35 Body mass index [BMI] 35.0-35.9, adult
CPT/HCPCS: 36415; 36591; 71045; 80053; 80061; 82550; 83036; 83690; 83735; 84443; 84484; 85025; 93005; 93306; 96360; 99283; 99284; G0378; J1644

== ENCOUNTER → 2018-07-02 07:54 | Outpatient (CLI) | payer MEDICARE, OTHER, SELFPAY ==
[2018-06-13 06:29] VITALS: BMI 35.2
--- NOTE | 2018-07-02 09:20 | PM.TREADMILL ---
Cardiac Stress Test Report Referral & Results Date Patient Seen: 07/02/18 Requesting provider: Chelsi Doe Indication: Chest pain, recent hospital admission Rest ECG: Unremarkable, frequent PVCs Procedure Note: Today following both written and verbal informed consent the patient was exercised according to a standard Craig protocol patient went for a total of 9 min 3 sec achieving a maximum heart rate of 128 maximum systolic blood pressure of 180. This is approximately 10.1 METS. Exercise was terminated at this point because of patient was unable to go at a high rate of speed. Patient was also given Cardiolite through a previously started Hep-Lock IV by the nuclear medicine supervisor approximately 1 minute prior to the cessation of exercise. Patient had a blunted heart rate response to some degree, failed to reach heart rate target likely because he did not hold his beta-mounika therapy. He came very close however. Normal blood pressure response to exercise No ST-T segment changes Frequent PVCs at rest few were and became frankly absent as heart rate increased Functional aerobic impairment rated-12% or 112% normal capacity on the active scale Impression: No ECG evidence of ischemia Excellent exercise capacity Ventricular dysrhythmia as above Perfusion imaging to be reported separately Please note: Actual ECG tracings can be found in the PACS system.
--- NOTE | 2018-07-03 14:33 | DI.NM.S_ITS ---
DATE OF SERVICE: 07/02/2018 PROCEDURE: Exercise perfusion study. INDICATION: Chest pain with underlying hypertension, hyperlipidemia. RADIOPHARMACEUTICAL: 24.4 mCi technetium-99m Myoview IV was injected at stress, and 25.5 mCi technetium-99m Myoview IV was injected at rest. CARDIAC STRESS: Patient underwent exercise perfusion study under the supervision of an attending staff. Patient walked on Craig protocol for 9 minutes 3 seconds and achieved 83% of target heart rate. There was normal blood pressure response. Patient achieved 10.1 METS of workload and functional aerobic impairment of -12%. Patient was on beta-mounika. Baseline EKG revealed sinus rhythm with some isolated PVCs. During stress, PVCs got suppressed. No significant arrhythmias seen during exercise. No obvious inducible ischemic changes. Patient felt fatigued. No chest pain. RAW DATA: There was increased subdiaphragmatic activity. Weight is 225 pounds. GATED STUDY: Resting LV ejection fraction 67% and stress LV ejection fraction 71% without any obvious wall motion abnormalities. Lung/heart ratio 0.38, which was within normal limits. No transient ischemic dilatation. TID ratio was 0.80, which was within normal limits. Resting end-diastolic volume was 123 mL. MYOCARDIAL PERFUSION SCAN: Resting supine, stress supine, and stress prone images were compared to each other. Resting and stress supine images revealed moderate-sized [id number] decreased perfusion of inferior wall and inferior apex, which got partially improved during prone images. No obvious reversible ischemia seen. CONCLUSION: 1. No obvious reversible ischemia. 2. Good exercise tolerance with functional aerobic impairment -12% with preserved LV function. 3. Stress and resting supine images revealed moderate-sized [id number] decreased perfusion of inferior wall, inferior apex, which got partially improved during prone images. Patient had perfusion scan in April 2013. At that time also, patient had inferior wall perfusion defect which improved during prone images. Inferior wall is moving well. On surface EKG, no pathological Q wave in inferior leads. Patient's weight is 225 pounds. There was increased subdiaphragmatic activity. There is possibility of persistent tissue attenuation artifact causing mild inferior wall defect during prone images as well. Overall, this is a low-risk myocardial perfusion scan. Clinical correlation is recommended. RogerCésar - DIRECTOR TRANSPORTATION/fn/kv doc#: [id number]/job#: [id number] dd: 07/03/2018 11:55:00 dt: 07/03/2018 14:24:00 DICTATING MD/COPIES TO: Andreas Wynn MD COPIES MNE: MARY ANN
== END ==
PROVIDERS: PCP Internal Medicine; Visit Provider Internal Medicine
DX: R07.9 Chest pain, unspecified (principal); I49.3 Ventricular premature depolarization; I10 Essential (primary) hypertension; E78.5 Hyperlipidemia, unspecified
CPT/HCPCS: 78452; 93016; 93017; 93018; A9502

== ENCOUNTER 2018-10-16 11:51 | Day surgery (SDC) | payer MEDICARE, SELFPAY ==
[2018-06-13 06:29] VITALS: BMI 35.2
--- NOTE | 2018-10-16 | PATH_ITS ---
[facility] Accession Number: [id number] . 01 Material submitted: . PART A: RIGHT COLON POLYP AT 70CM X2 PART B: HEPATIC FLEXURE POLYP PART C: LEFT COLON POLYP AT 50CM . 02 Diagnosis: A. Right Colon, Polyp At 70 CM X2, Biopsies: Tubular adenomas. . B. Hepatic Flexure, Polyp, Biopsy: Tubular adenoma. . C. Left Colon, Polyp At 50 CM, Biopsy: Tubular adenoma. JRL/10/17/2018 . 02 Electronically signed: . Alena Zhao MD, Pathologist NPI- [id number] . 01 Gross description: . Part A: RIGHT COLON POLYP AT 70CM X2: Received in formalin are 2 fragment(s) of rodriguez, soft tissue measuring 0.2 x 0.2 x 0.2 cm to 0.5 x 0.3 x 0.2 cm which is entirely submitted and submitted entirely in 1 cassette(s) Part B: HEPATIC FLEXURE POLYP: Received in formalin are 2 fragment(s) of rodriguez, soft tissue measuring 0.1 x 0.1 x 0.1 cm to 0.3 x 0.3 x 0.2 cm which is entirely submitted and submitted entirely in 1 cassette(s) Part C: LEFT COLON POLYP AT 50CM: Received in formalin is 1 fragment(s) of rodriguez, soft tissue measuring 0.4 x 0.3 x 0.2 cm which is entirely submitted and submitted entirely in 1 cassette(s) /DMC /[facility] . 02 Pathologist provided ICD-10: D12.6, D12.3 . 02 CPT . 271894, [id number], [id number] Performed at: 01 [facility] [address], [place], [place] [id number] MD Woody Rock MD Phone: [phone] Performed at: 02 [facility] [id number] [place] [id number] MD Alena Zhao MD Phone: [phone]
[2018-10-16 12:14] VITALS: BMI 34.4
[2018-10-16 12:19] VITALS: BP 129/85; PULSE 74; RESP 20; TEMP 36.6; O2SAT 96
[2018-10-16] MEDS: SODIUM CHLORIDE 0.9% 1,000 ML 200 ML IV (12:25)
--- NOTE | 2018-10-16 13:12 | PM.HP.1 ---
History of Present Illness Date Patient Seen: 10/16/18 Time Patient Seen: 13:12 Chief complaint: [id number] Narrative: 67-year-old male with personal history of colon polyps who presents today for colorectal screening. His last examination was approximately 5 years ago. On further history today he denies any recent gastrointestinal symptoms. No nausea, vomiting, change in bowel habits, diarrhea, constipation, melena, hematochezia, or bright red blood per rectum. Patient History Medical History Essential hypertension (Acute) Hyperlipidemia due to dietary fat intake (Acute) Personal history of colonic polyps (Acute) Surgical History History of colonoscopy (Acute) History of lumbosacral spine surgery (Acute) Family History (Updated 06/13/18 @ 07:02 by KEVIN Coronado) Mother Hypertension Pancreatic cancer Father No known health problems Brother Hypertension Social History household members: spouse Smoking Status: Never smoker Family & Social History Family History Mother Hypertension Pancreatic cancer Father No known health problems Brother Hypertension Social History: household members spouse Tobacco & Substance use: Smoking Status Never smoker alcohol intake frequency 0-2 drinks per day Meds Home Medications Medication Instructions Recorded Confirmed Type atorvastatin [Lipitor] 40 mg PO QDAY #0 11/13/12 10/16/18 History hydrochlorothiazide 37.5 mg PO QDAY #0 11/13/12 10/16/18 History ramipril 10 mg PO QDAY #0 11/13/12 10/16/18 History aspirin 81 mg PO DAILY 06/13/18 10/16/18 History metoprolol tartrate 12.5 mg PO BID 06/13/18 10/16/18 History nitroglycerin [Nitrostat] 0.4 mg SUBLINGUAL [id number] PRN #30 06/13/18 10/16/18 Rx tab Allergies Allergy/AdvReac Type Severity Reaction Status Date / Time No Known Drug Allergies Allergy Verified 10/16/18 12:13 Review of Systems Review of Systems All systems reviewed & are unremarkable except as noted in HPI and below Exam Vital Signs (past 8 hours): - 10/16/18 12:19 Temperature 97.8 F Pulse Rate 74 Respiratory Rate 20 Blood Pressure 129/85 Pulse Oximetry 96 Oxygen Delivery Method Room Air Narrative Exam Narrative: well-nourished well-developed male in no acute distress. Alert orient x3 sclera nonicteric Regular rate rhythm currently. I appreciate no PVCs or other abnormalities. abdomen soft, nondistended, nontender, no masses extremities show no clubbing or cyanosis Objective Labs Labs: no recent laboratory or radiographic studies for review Assessment & Plan Assessment & Plan narrative: 67-year-old male with personal history colon polyps. He requires surveillance for such. Colonoscopy is once again recommended. Technical details were reviewed. Risks, benefits, and alternatives were explained. Risks including but not limited to sedation, aspiration, bleeding, pain, missed lesion, incomplete examination, need for further radiographic studies, colonic perforation, need for major abdominal surgery, and all attendant risks of major surgery were explained in detail. All questions were answered to his satisfaction, and he voiced understanding. Consent was placed on the chart. We will proceed as above.
--- NOTE | 2018-10-16 13:16 | P.HP_ITS ---
History of Present Illness Date Patient Seen: 10/16/18 Time Patient Seen: 13:12 Chief complaint: [id number] Narrative: 67-year-old male with personal history of colon polyps who presents today for colorectal screening. His last examination was approximately 5 years ago. On further history today he denies any recent gastrointestinal symptoms. No nausea, vomiting, change in bowel habits, diarrhea, constipation, melena, hematochezia, or bright red blood per rectum. Patient History Medical History Essential hypertension (Acute) Hyperlipidemia due to dietary fat intake (Acute) Personal history of colonic polyps (Acute) Surgical History History of colonoscopy (Acute) History of lumbosacral spine surgery (Acute) Family History (Updated 06/13/18 @ 07:02 by KEVIN Coronado) Mother Hypertension Pancreatic cancer Father No known health problems Brother Hypertension Social History household members: spouse Smoking Status: Never smoker Family & Social History Family History Mother Hypertension Pancreatic cancer Father No known health problems Brother Hypertension Social History: household members spouse Tobacco & Substance use: Smoking Status Never smoker alcohol intake frequency 0-2 drinks per day Meds Home Medications Medication Instructions Recorded Confirmed Type atorvastatin [Lipitor] 40 mg PO QDAY #0 11/13/12 10/16/18 History hydrochlorothiazide 37.5 mg PO QDAY #0 11/13/12 10/16/18 History ramipril 10 mg PO QDAY #0 11/13/12 10/16/18 History aspirin 81 mg PO DAILY 06/13/18 10/16/18 History metoprolol tartrate 12.5 mg PO BID 06/13/18 10/16/18 History nitroglycerin [Nitrostat] 0.4 mg SUBLINGUAL [id number] PRN #30 06/13/18 10/16/18 Rx tab Allergies Allergy/AdvReac Type Severity Reaction Status Date / Time No Known Drug Allergies Allergy Verified 10/16/18 12:13 Review of Systems Review of Systems All systems reviewed & are unremarkable except as noted in HPI and below Exam Vital Signs (past 8 hours): - 10/16/18 12:19 Temperature 97.8 F Pulse Rate 74 Respiratory Rate 20 Blood Pressure 129/85 Pulse Oximetry 96 Oxygen Delivery Method Room Air Narrative Exam Narrative: well-nourished well-developed male in no acute distress. Alert orient x3 sclera nonicteric Regular rate rhythm currently. I appreciate no PVCs or other abnormalities. abdomen soft, nondistended, nontender, no masses extremities show no clubbing or cyanosis Objective Labs Labs: no recent laboratory or radiographic studies for review Assessment & Plan Assessment & Plan narrative: 67-year-old male with personal history colon polyps. He requires surveillance for such. Colonoscopy is once again recommended. Technical details were reviewed. Risks, benefits, and alternatives were explained. Risks including but not limited to sedation, aspiration, bleeding, pain, missed lesion, incomplete examination, need for further radiographic studies, colonic perforation, need for major abdominal surgery, and all attendant risks of major surgery were explained in detail. All questions were answered to his satisfaction, and he voiced understanding. Cons ent was placed on the chart. We will proceed as above.
--- NOTE | 2018-10-16 13:16 | PM.PREOP ---
Pre-operative Note Interval Note History & Physical reviewed/Exam performed by Physician: Yes Changes to H&P: No H&P completed within 30 days and has changed as indicated here:: Patient seen and examined today. History and physical examination placed on the chart. Obviously, no changes in the last 15 min. Proceed with colonoscopy today as planned. ASA Class (for procedural sedation): II
[2018-10-16] MEDS: fentaNYL 250 MCG/5 ML INJ IV (13:17)
[2018-10-16] MEDS: MIDAZOLAM 5 MG/5 ML VIAL IV (13:18)
--- NOTE | 2018-10-16 13:40 | PM.OP.ENDO ---
Operative Date/Time/Diagnoses Date of procedure: 10/16/18 Time of procedure: 13:40 Pre-op diagnosis: Personal history colon polyps Post-op diagnosis: other ( multiple colon polyps) Procedure & Clinicians Study performed: 1. Sedation per surgeon 2. Colonoscopy with multiple cold forceps polypectomies Same procedure as scheduled: Yes Indications: 67-year-old male who presents for colorectal screening with a personal history of colon polyps. Last examination was 5 years ago approximately. Colonoscopy is once again recommended. Surgeon: Mango Tya Procedure Notes SCOAP/Timeout: yes Procedure in detail: After obtaining informed consent, the patient was brought to the GI suite and placed in the left lateral decubitus position on the examination table. After placement of appropriate monitors, the patient was given incremental doses of Versed and Fentanyl until an appropriate level of sedation was achieved. A time out was held per SCOAP protocol. A digital rectal examination was performed and did not reveal any masses or obstructing lesions. The colonoscope was gently passed into the patient's anus and the entire colon navigated to the level of the cecum with minimal difficulty. Once in the cecum, the scope was withdrawn being sure to go before and beyond all mucosal folds and prominences and get an excellent examination. The findings are noted above. At the level of the rectal vault, the scope was retroflexed and the internal anal canal was examined. The scope was straightened and air aspirated from the colon. The instrument was removed from the patient's body and the procedure was concluded. The patient was allowed to awaken from sedation without difficulty and taken to the post-anesthesia care unit in good condition. Scope withdrawal time: 14:32 min Sedation minutes: 23 Findings: internal hemorrhoids ( grade 2 only) and polyp Specimen(s): other ( 1. right colon polyp at 70 cm x2 2. hepatic flexure polyp 3. left colon polyp at 50 cm) Complications: none Recommendations: Colonscopy in 5 years, High fiber diet and Will call with biopsy results Plan for aftercare: 1. Discharge home Follow up: as needed Disposition: PACU
[2018-10-16 13:43] VITALS: BP 123/83; PULSE 68; RESP 12; TEMP 36.5; O2SAT 96
[2018-10-16 13:48] VITALS: BP 116/83; PULSE 67; RESP 17; O2SAT 97
[2018-10-16 13:53] VITALS: BP 135/93; PULSE 76; RESP 16; TEMP 36.4; O2SAT 95
[2018-10-16 14:00] VITALS: BP 129/85; PULSE 66; RESP 16; TEMP 36.3; O2SAT 96
== END 2018-10-16 14:20 | disposition home or self-care (01) ==
PROVIDERS: PCP Internal Medicine; Visit Provider Surgery
PROC: 0DJD8ZZ Inspection of Lower Intestinal Tract, Via Natural or Artificial Opening Endoscopic (ICD-10-PCS; CPT 45378; principal; 2018-10-16 13:00)
DX: Z86.010 Personal history of colon polyps (principal); K64.1 Second degree hemorrhoids; D12.6 Benign neoplasm of colon, unspecified; D12.3 Benign neoplasm of transverse colon; I10 Essential (primary) hypertension; E78.5 Hyperlipidemia, unspecified
CPT/HCPCS: 45380; 99152; J2250; J3010

== ENCOUNTER → 2020-08-12 18:53 | Outpatient (ROUT) | payer MEDICARE, SELFPAY ==
[2018-06-13 06:29] VITALS: BMI 35.2
[2020-08-12 19:46] LABS: Aspartate Aminotransferase 34 IU/L (17-59); Blood Urea Nitrogen 23 mg/dL (9-20); Calcium 9.4 mg/dL (8.4-10.2); Carbon Dioxide 33 mmol/L (22-32); Chloride 97 mmol/L (98-107); Cholesterol 169 mg/dL (140-199); Estimated Glomerular Filt Rate > 60.0 mL/min (>60); Glucose 119 mg/dL (80-110); HDL Cholesterol 33 mg/dL (40-60); HEMOLYSIS < 15 (0-50); LDL Cholesterol Calculated 96 mg/dL (<100); Potassium 4.2 mmol/L (3.4-5.1); Sodium 135 mmol/L (137-145); Triglycerides 198 mg/dL (35-150)
[2020-08-12 19:48] LABS: Hemoglobin A1C% w Est Avg Glu 6.5 % (4.0-6.0)
== END ==
PROVIDERS: PCP Internal Medicine; Visit Provider Internal Medicine
DX: I10 Essential (primary) hypertension (principal); E78.2 Mixed hyperlipidemia; R73.01 Impaired fasting glucose
CPT/HCPCS: 80048; 80061; 83036; 84450

== ENCOUNTER 2022-01-25 18:27 | Emergency (ER) | payer MEDICARE, SELFPAY ==
[2018-06-13 06:29] VITALS: BMI 35.2
[2022-01-25 18:28] VITALS: BP 135/78; PULSE 77; RESP 15; TEMP 36.3; O2SAT 97; BMI 35.2
--- NOTE | 2022-01-25 18:36 | DI.RAD.S_ITS ---
PROCEDURE: XR TIBIA FUBULA RT 2V INDICATIONS: fall TECHNIQUE: 2 views of the tibia and fibula were acquired. COMPARISON: None. FINDINGS: Bones: No fractures or dislocations. Mild joint space narrowing at the medial compartment of the knee joint. No suspicious bony lesions. Small plantar calcaneal spur. Soft tissues: No suspicious soft tissue calcifications or masses. IMPRESSION: No acute osseous abnormality. Dictated by: Maulik Swanson M.D. on 01/25/2022 at 20:04 Approved by: Maulik Swanson M.D. on 01/25/2022 at 20:05
[2022-01-25] MEDS: ACETAMINOPHEN 325 MG TABLET PO (20:59)
[2022-01-25] MEDS: IBUPROFEN 400 MG TABLET PO (20:59)
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
[2022-01-25 22:06] VITALS: BP 149/82; PULSE 74; RESP 18; O2SAT 99
[2022-01-25] MEDS: OXYCODONE/APAP 5/325 PREPACK 1 BOTTLE MISC (22:06)
== END 2022-01-25 22:13 | disposition home or self-care (01) ==
PROVIDERS: Emergency Provider Emergency Medicine; PCP Internal Medicine
DX: S93.401A Sprain of unspecified ligament of right ankle, initial encounter (principal); V19.9XXA Pedal cyclist (driver) (passenger) injured in unspecified traffic accident, initial encounter
CPT/HCPCS: 73590; 99283

== ENCOUNTER → 2022-08-31 10:37 | Outpatient (CLI) | payer MEDICARE, SELFPAY ==
[2018-06-13 06:29] VITALS: BMI 35.2
[2022-08-31 11:31] LABS: Hematocrit 47.7 % (41-53); Hemoglobin 15.8 g/dL (13.5-17.5); Mean Corpuscular HGB Conc 33.2 % (30-36); Mean Corpuscular Hemoglobin 29.4 PG (26-34); Mean Corpuscular Volume 88.6 fL (80-100); Platelet Count 225 X10^3/uL (150-400); Red Blood Cell Count 5.39 X10^6/uL (4.5-5.9); Red Cell Distribution Width 13.1 % (11.6-14.8); White Blood Cell Count 6.3 X10^3/uL (4.5-11.0)
[2022-08-31 11:35] LABS: Hemoglobin A1C% w Est Avg Glu 6.5 % (4.0-6.0)
[2022-08-31 11:40] LABS: Alanine Aminotransferase 53 IU/L (<50); Albumin 4.5 g/dL (3.5-5.0); Albumin Globulin Ratio 1.3 (1.0-2.8); Alkaline Phosphatase 75 U/L (38-126); Aspartate Aminotransferase 37 IU/L (17-59); Bilirubin Total 0.8 mg/dL (0.2-1.3); Blood Urea Nitrogen 25 mg/dL (9-20); Carbon Dioxide 31 mmol/L (22-32); Chloride 96 mmol/L (98-107); Cholesterol 193 mg/dL (140-199); Estimated Glomerular Filt Rate > 60 mL/min (>60); Globulin 3.5 g/dL (1.7-4.1); Glucose 113 mg/dL (80-110); HDL Cholesterol 35 mg/dL (40-60); HEMOLYSIS < 15 (0-50); LDL Cholesterol Calculated 118 mg/dL (<100); Potassium 3.8 mmol/L (3.4-5.1); Sodium 137 mmol/L (137-145); Triglycerides 200 mg/dL (35-150)
[2022-08-31 12:09] LABS: Prostate Specific Antigen 0.712 ng/mL (0.10-4.00)
[2022-08-31 12:19] LABS: TSH w/ Reflex to FT4 1.51 uIU/mL (0.47-4.68)
== END ==
PROVIDERS: PCP Internal Medicine; Referring Provider Internal Medicine; Visit Provider Internal Medicine
DX: E78.2 Mixed hyperlipidemia (principal); R73.01 Impaired fasting glucose; I10 Essential (primary) hypertension; N40.1 Benign prostatic hyperplasia with lower urinary tract symptoms; N13.8 Other obstructive and reflux uropathy
CPT/HCPCS: 36415; 80053; 80061; 83036; 84153; 84443; 85027

== ENCOUNTER → 2023-01-31 09:26 | Outpatient (CLI) | payer MEDICARE, SELFPAY ==
[2018-06-13 06:29] VITALS: BMI 35.2
[2023-01-31 12:34] LABS: Aspartate Aminotransferase 34 IU/L (17-59); Blood Urea Nitrogen 23 mg/dL (9-20); Calcium 9.1 mg/dL (8.4-10.2); Carbon Dioxide 30 mmol/L (22-32); Chloride 98 mmol/L (98-107); Cholesterol 177 mg/dL (140-199); Estimated Glomerular Filt Rate > 60 mL/min (>60); Glucose 102 mg/dL (80-110); HDL Cholesterol 35 mg/dL (40-60); HEMOLYSIS < 15 (0-50); LDL Cholesterol Calculated 111 mg/dL (<100); Potassium 4.4 mmol/L (3.4-5.1); Sodium 137 mmol/L (137-145); Triglycerides 155 mg/dL (35-150)
[2023-01-31 15:25] LABS: Creatinine Urine Random 105.1 mg/dL
[2023-01-31 15:29] LABS: Microalbumin Urine Random < 0.6 mg/dL (0-1.6)
[2023-02-01 04:30] LABS: Labcorp Hemoglobin (Hb) A1c 6.3 % (4.8-5.6)
== END ==
PROVIDERS: PCP Internal Medicine; Referring Provider Internal Medicine; Visit Provider Internal Medicine
DX: E11.69 Type 2 diabetes mellitus with other specified complication (principal); E78.5 Hyperlipidemia, unspecified; E78.2 Mixed hyperlipidemia; I10 Essential (primary) hypertension
CPT/HCPCS: 36415; 80048; 80061; 82043; 82570; 83036; 84450

== ENCOUNTER → 2023-06-05 08:11 | Outpatient (CLI) | payer MEDICARE, SELFPAY ==
[2018-06-13 06:29] VITALS: BMI 35.2
[2023-06-05 09:03] LABS: Hemoglobin A1C% w Est Avg Glu 6.7 % (4.0-6.0)
[2023-06-05 09:32] LABS: Aspartate Aminotransferase 34 IU/L (17-59); BUN Creatinine Ratio 21.7 (6-22); Blood Urea Nitrogen 25 mg/dL (9-20); Calcium 9.6 mg/dL (8.4-10.2); Carbon Dioxide 30 mmol/L (22-32); Chloride 96 mmol/L (98-107); Cholesterol 183 mg/dL (140-199); Estimated Glomerular Filt Rate > 60 mL/min (>60); Glucose 109 mg/dL (80-110); HDL Cholesterol 36 mg/dL (40-60); HEMOLYSIS < 15 (0-50); LDL Cholesterol Calculated 114 mg/dL (<100); Potassium 4.1 mmol/L (3.4-5.1); Sodium 135 mmol/L (137-145); Triglycerides 166 mg/dL (35-150)
== END ==
PROVIDERS: PCP Internal Medicine; Referring Provider Internal Medicine; Visit Provider Internal Medicine
DX: E11.69 Type 2 diabetes mellitus with other specified complication (principal); E78.5 Hyperlipidemia, unspecified; E78.2 Mixed hyperlipidemia; I10 Essential (primary) hypertension
CPT/HCPCS: 36415; 80048; 80061; 83036; 84450

== ENCOUNTER → 2023-11-04 08:12 | Outpatient (CLI) | payer MEDICARE, SELFPAY ==
[2018-06-13 06:29] VITALS: BMI 35.2
[2023-11-04 09:21] LABS: Hemoglobin A1C% w Est Avg Glu 6.3 % (4.0-6.0)
[2023-11-04 09:34] LABS: Aspartate Aminotransferase 29 IU/L (17-59); BUN Creatinine Ratio 20.4 (6-22); Blood Urea Nitrogen 19 mg/dL (9-20); Calcium 9.2 mg/dL (8.4-10.2); Carbon Dioxide 31 mmol/L (22-32); Chloride 99 mmol/L (98-107); Cholesterol 157 mg/dL (140-199); Estimated Glomerular Filt Rate > 60 mL/min (>60); Glucose 118 mg/dL (80-110); HDL Cholesterol 35 mg/dL (40-60); HEMOLYSIS < 15 (0-50); LDL Cholesterol Calculated 84 mg/dL (<100); Potassium 4.5 mmol/L (3.4-5.1); Sodium 136 mmol/L (137-145); Triglycerides 192 mg/dL (35-150)
[2023-11-04 09:47] LABS: Creatinine Urine Random 88.7 mg/dL
[2023-11-04 09:53] LABS: Microalbumin Urine Random < 0.6 mg/dL (0-1.6)
[2023-11-04 09:56] LABS: Prostate Specific Antigen 0.785 ng/mL (0.10-4.00)
== END ==
LOC: LAB 08:13
PROVIDERS: PCP Internal Medicine; Referring Provider Internal Medicine; Visit Provider Internal Medicine
DX: E78.2 Mixed hyperlipidemia (principal); E11.69 Type 2 diabetes mellitus with other specified complication; N40.1 Benign prostatic hyperplasia with lower urinary tract symptoms; I10 Essential (primary) hypertension; E78.5 Hyperlipidemia, unspecified; N13.8 Other obstructive and reflux uropathy
CPT/HCPCS: 36415; 80048; 80061; 82043; 82570; 83036; 84153; 84450

== ENCOUNTER 2023-12-31 12:08 | Day surgery (SDC) | payer MEDICARE, SELFPAY ==
[2018-06-13 06:29] VITALS: BMI 35.2
[2023-12-31 12:51] VITALS: BP 158/76; PULSE 72; RESP 16; TEMP 36.5; O2SAT 97
[2023-12-31] MEDS: LACTATED RINGERS 1,000 ML 42 ML IV (12:53)
--- NOTE | 2023-12-31 13:22 | PM.HP.1 ---
History of Present Illness History of Present Illness Date Patient Seen: 12/31/23 Time Patient Seen: 13:22 Chief complaint: SDC Narrative: 73-year-old male personal with rectal bleeding here for colonoscopy possible hemorrhoidal banding. Please refer to H and P from last month for further detail. No interval change in health. No recent episodes of bleeding. [facility] Medical History Scoliosis (~2008) Mumps Measles Herpes (~1978) Vertigo (~2014) Tinnitus (~2013) Hearing loss Colon polyps (~2002) DM type 2 with diabetic dyslipidemia Rupture of right Achilles tendon Obesity (BMI 30.0-34.9) BPH w urinary obs/LUTS BPPV (benign paroxysmal positional vertigo) Atypical chest pain Ventricular premature contractions Chronic low back pain (~2008) Mixed hyperlipidemia Personal history of colonic polyps Essential hypertension (~1984) Surgical History Anesthesia History of Achilles tendon repair (~02/06/22) History of colonoscopy History of lumbosacral spine surgery (~05/2013) Family History Mother Hypertension Pancreatic cancer Father Dementia Brother Hypertension Grandfather Diabetes mellitus History of heart disease Hypertension Grandmother Diabetes mellitus History of heart disease Hypertension Stroke Grandfather Cancer Grandmother Dementia History of heart disease 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 lives independently: Yes Smoking Status: Never smoker alcohol intake: current substance use type: does not use Meds Home Medications and Allergies Home Medications Medication Instructions Recorded Confirmed Type aspirin 81 mg tablet,delayed 81 mg PO DAILY 06/13/18 11/28/23 History release nitroglycerin 0.4 mg sublingual 0.4 mg sublingual [id number] PRN 06/13/18 11/28/23 Rx tablet (Nitrostat) Chest Pain #30 tabs metoprolol tartrate 25 mg tablet 25 mg PO .COMPLEX #135 tabs 06/11/23 12/31/23 Rx hydrochlorothiazide 25 mg tablet 37.5 mg (1.5 x 25 mg) PO QDAY #135 07/29/23 12/31/23 Rx tabs ramipril 10 mg capsule 10 mg PO QDAY #90 caps 07/29/23 12/31/23 Rx atorvastatin 40 mg tablet (Lipitor) 40 mg PO QDAY #90 tabs 07/30/23 12/31/23 Rx empagliflozin 10 mg tablet 10 mg PO DAILY #90 tabs 11/06/23 12/31/23 Rx (Jardiance) Allergies Allergy/AdvReac Type Severity Reaction Status Date / Time rosuvastatin AdvReac Intermediate Joint Pain Verified 12/31/23 12:46 Exam Vital Signs (past 8 hours): - 12/31/23 12:51 Temperature 97.7 F Pulse Rate 72 Respiratory Rate 16 Blood Pressure 158/76 H Pulse Oximetry 97 Oxygen Delivery Method Room Air Oxygen Delivery Method Room Air Narrative Exam Narrative: General adult man alert oriented no acute distress Chest nonlabored respiration Extremities warm well perfused Assessment & Plan Assessment & Plan narrative: 73-year-old man with rectal bleeding here for colonoscopy with possible hemorrhoidal banding. Technical details were discussed. Risks, benefits, alternatives explained. Risks including but not limited to myocardial infarction, aspiration, bleeding, pain, missed lesion, incomplete examination, need for further radiographic studies, intestinal injury, and need for major abdominal surgery were discussed. All questions were answered to their satisfaction, and they are in agreement with this plan.
[2023-12-31 13:42] VITALS: BP 135/94; PULSE 63; RESP 14; TEMP 36.6; O2SAT 97
[2023-12-31 13:47] VITALS: BP 134/80; PULSE 59; RESP 15; O2SAT 96
--- NOTE | 2023-12-31 13:47 | P.OP.COLON_ITS ---
Operative Date/Time/Diagnoses Date of procedure: 12/31/23 Time of procedure: 13:47 Pre-op diagnosis: Rectal bleeding Procedure & Clinicians Study performed: Diagnostic colonoscopy Same procedure as scheduled: Yes Indications: Rectal bleeding Surgeon: Wyatt Tran Procedure Notes Procedure in detail: The history and physical was performed/updated and the patient is ASA class is 2. The procedure was discussed in detail with the patient. Potential risks complications including infection, bleeding, missed diagnosis, perforation, need for surgery, and were explained. Their questions were answered and informed consent was obtained. Patient was brought to the procedure room and placed standard monitoring equipment. The patient's vital signs were monitored continuously throughout the entire procedure. Prior to starting time-out was performed. The patient was placed in the left lateral recumbent position. Procedural sedation was administered by anesthesia. Examination began with a thorough inspection of the perianal area there was no evidence of fissures, fistulae, external hemorrhoids or cutaneous malignancy. The colonoscopy scope was then placed into the anal canal and was advanced to the cecum, which was identified by the ileocecal valv e, the appendiceal orifice and the confluence of the taenia. The scope was then slowly withdrawn examining colon thoroughly in all directions, irrigating it of any residual stool. The scope was retroflexed within the rectum The patient tolerated the procedure well. They will be discharged once criteria are met. The prep was of good/excellent quality. The withdrawl time was 7 minutes. FINDINGS * Unremarkable colonoscopy. No masses polyps. * Minimal internal hemorrhoids no banding was performed Specimen(s): none sent Impression: Normal colonoscopy Post-procedure Recommendations: High fiber diet Plan for aftercare: No further colonoscopy necessary unless symptomatic Disposition: same day surgery
[2023-12-31 13:52] VITALS: BP 119/75; PULSE 60; RESP 15; O2SAT 95
[2023-12-31 14:00] VITALS: BP 110/72; PULSE 62; RESP 15; TEMP 36.2; O2SAT 95
== END 2023-12-31 14:15 | disposition home or self-care (01) ==
PROVIDERS: PCP Internal Medicine; Referring Provider Surgery; Visit Provider Surgery
PROC: 0DJD8ZZ Inspection of Lower Intestinal Tract, Via Natural or Artificial Opening Endoscopic (ICD-10-PCS; CPT 45378; principal; 2023-12-31 13:00)
DX: K62.5 Hemorrhage of anus and rectum (principal); K64.8 Other hemorrhoids
CPT/HCPCS: 45378; J2704

== ENCOUNTER → 2024-05-07 08:06 | Outpatient (CLI) | payer MEDICARE, SELFPAY ==
[2018-06-13 06:29] VITALS: BMI 35.2
[2024-05-07 10:08] LABS: Hemoglobin A1C% w Est Avg Glu 6.4 % (4.0-6.0)
[2024-05-07 10:14] LABS: BUN Creatinine Ratio 22.5 (6-22); Blood Urea Nitrogen 20 mg/dL (9-20); Calcium 9.1 mg/dL (8.4-10.2); Carbon Dioxide 29 mmol/L (22-32); Chloride 96 mmol/L (98-107); Estimated Glomerular Filt Rate > 60 mL/min (>60); Glucose 109 mg/dL (80-110); HEMOLYSIS < 15 (0-50); Potassium 4.3 mmol/L (3.4-5.1); Sodium 133 mmol/L (137-145)
== END ==
LOC: LAB 08:07
PROVIDERS: PCP Internal Medicine; Referring Provider Internal Medicine; Visit Provider Internal Medicine
DX: E11.69 Type 2 diabetes mellitus with other specified complication (principal); E78.5 Hyperlipidemia, unspecified
CPT/HCPCS: 36415; 80048; 83036

== ENCOUNTER → 2024-08-03 09:36 | Outpatient (CLI) | payer MEDICARE, SELFPAY ==
[2018-06-13 06:29] VITALS: BMI 35.2
--- NOTE | 2024-08-03 09:38 | DI.US.S_ITS ---
PROCEDURE: US ARTERIAL DUPLEX UE RT INDICATIONS: hx of scapular cyst/right scapula pain TECHNIQUE: Color and pulse Doppler interrogation was performed of the right upper extremity arterial systems, with image documentation. Additional images were obtained of the area of interest overlying the right medial scapula site of scarring. COMPARISON: None. FINDINGS: Right upper extremity: Subclavian artery (proximal): 109.2 cm/sec, with patent flow. Subclavian artery (mid): 56.6 cm/sec, with patent flow. Subclavian artery (distal): 67.5 cm/sec, with patent flow. Axillary artery: 68.1 cm/sec, with patent flow. Brachial artery (proximal): 88 cm/sec, with patent flow. Brachial artery (mid): 83.6 cm/sec, with patent flow. Brachial artery (distal): 69.4 cm/sec, with patent flow. Radial artery (proximal): 73.3 cm/sec, with patent flow. Radial artery (mid): 68.8 cm/sec, with patent flow. Radial artery (distal): 70.1 cm/sec, with patent flow. Ulnar artery (proximal): 57.2 cm/sec, with patent flow. Ulnar artery (mid): 48.8 cm/sec. with patent flow. Ulnar artery (distal): 64.3 cm/sec, with patent flow. Lopez-scale imaging description: Normal appearance of the right upper extremity vasculature. At the region of interest of the medial right scapula is seen an ill-defined 3.7 x 1.3 cm lesion which may represent fibrosis and/or scarring mixed with the underlying subcutaneous fat. No fluid collections are seen. No drainable cyst. No soft tissue edema. IMPRESSION: 1. Abnormal ill-defined area of fibrosis versus scarring in the subcutaneous fat at the right medial scapular scar. Consider MRI or CT for additional evaluation. 2. Normal appearance of the right upper extremity vasculature. Dictated by: Woody Viera M.D. on 08/03/2024 at 15:37 Approved by: Woody Viera M.D. on 08/03/2024 at 16:03
== END ==
PROVIDERS: PCP Internal Medicine; Referring Provider Physical Medicine & Rehabilitation Pain Medicine; Visit Provider Physical Medicine & Rehabilitation Pain Medicine
DX: S29.012A Strain of muscle and tendon of back wall of thorax, initial encounter (principal)
CPT/HCPCS: 93931

== ENCOUNTER → 2024-12-18 08:48 | Outpatient (CLI) | payer MEDICARE, SELFPAY ==
[2018-06-13 06:29] VITALS: BMI 35.2
[2024-12-18 10:16] LABS: Aspartate Aminotransferase 38 IU/L (17-59); BUN Creatinine Ratio 18.5 (6-22); Blood Urea Nitrogen 20 mg/dL (9-20); Calcium 9.5 mg/dL (8.4-10.2); Carbon Dioxide 28 mmol/L (22-32); Chloride 99 mmol/L (98-107); Estimated Glomerular Filt Rate > 60 mL/min (>60); Glucose 115 mg/dL (70-99); HEMOLYSIS < 15 (0-50); Potassium 4.3 mmol/L (3.4-5.1); Sodium 135 mmol/L (137-145)
[2024-12-18 10:46] LABS: Prostate Specific Antigen 0.765 ng/mL (0.10-4.00)
[2024-12-18 12:18] LABS: Creatinine Urine Random 82.01 mg/dL
[2024-12-18 12:26] LABS: Microalbumin Urine Random < 0.6 mg/dL (0-1.6)
== END ==
PROVIDERS: PCP Internal Medicine; Referring Provider Internal Medicine; Visit Provider Internal Medicine
DX: E11.69 Type 2 diabetes mellitus with other specified complication (principal); N40.1 Benign prostatic hyperplasia with lower urinary tract symptoms; N13.8 Other obstructive and reflux uropathy; E78.2 Mixed hyperlipidemia; E78.5 Hyperlipidemia, unspecified
CPT/HCPCS: 36415; 80048; 82043; 82570; 83036; 84153; 84450

== ENCOUNTER 2025-01-16 01:24 | Emergency (ER) | payer MEDICARE, SELFPAY ==
[2018-06-13 06:29] VITALS: BMI 35.2
[2025-01-16] VITALS (9 sets, daily range): BP systolic 126–149; BP diastolic 67–81; PULSE 66–80; RESP 15–20; TEMP 36.7; O2SAT 92–96; BMI 35.4
--- NOTE | 2025-01-16 01:41 | ED_ITS ---
HPI - Abdominal Pain General Chief Complaint: Back Pain/Injury Stated Complaint: Back Pain Time Seen by Provider: 01/16/25 01:28 Source: patient Mode of arrival: Ambulatory History of Present Illness HPI narrative: 74-year-old gentleman history of back surgery CAD dyslipidemia diabetes hypertension left lower quadrant pain radiating to the back tonight started at 4:00 p.m. woke him up after going to bed tonight. Patient denies fever chills chest pain shortness breath cough sore throat nausea vomiting diarrhea or urinary complaints. Patient last had a bowel movement yesterday morning and last ate hamburger earlier this evening. Other than what is stated 14 point review of system is negative. Related Data Home Medications ?Medication ?Instructions ?Recorded ?Confirmed aspirin 81 mg tablet,delayed 81 mg PO DAILY 06/13/18 0 12/30/24 release Previous Rx's ?Medication ?Instructions ?Recorded nitroglycerin 0.4 mg sublingual 0.4 mg sublingual Q5MI NX3 PRN 06/13/18 tablet (Nitrostat) Chest Pain #30 tabs atorvastatin 40 mg tablet (Lipitor) 40 mg PO QDAY #90 tabs 08/04/24 hydrochlorothiazide 25 mg tablet 37.5 mg (1.5 x 25 mg) PO QDAY #135 08/04/24 tabs metoprolol tartrate 25 mg tablet 25 mg PO .COMPLEX #13 5 tabs 08/04/24 ramipril 10 mg capsule 10 mg PO QDAY #90 caps 08/04 tirzepatide 2.5 mg/0.5 mL 2.5 mg (0.5 mL) SUBCUT QWEEK #2 mL 12/30/24 subcutaneous pen injector (Mounjaro) tirzepatide 5 mg/0.5 mL 5 mg (0.5 mL) SUBCUT QWEEK # 2 mL 12/30/24 subcutaneous pen injector (Mounjaro) Allergies Allergy/AdvReac Type Severity Reaction Status Date / Time rosuvastatin AdvReac Intermediate Joint Pain Verified 01/16/25 01:35 Review of Systems Review of Systems ROS Unobtainable: All systems reviewed & are unremarkable except as noted in HPI and below Patient History Medical History Atypical chest pain BPH w urinary obs/LUTS BPPV (benign paroxysmal positional vertigo) Chronic low back pain (~2008) Colon polyps (~2002) DM type 2 with diabetic dyslipidemia Essential hypertension (~1984) Hearing loss Herpes (~1978) Measles Mixed hyperlipidemia Mumps Obesity (BMI 30.0-34.9) Personal history of colonic polyps Rupture of right Achilles tendon Scoliosis (~2008) Tinnitus (~2013) Ventricular premature contractions Vertigo (~2014) Surgical History Anesthesia History of Achilles tendon repair (~02/06/22) History of colonoscopy History of lumbosacral spine surgery (~05/2013) Family History Mother Hypertension Pancreatic cancer Father Dementia Brother Hypertension Grandfather Diabetes mellitus History of heart disease Hypertension Grandmother Diabetes mellitus History of heart disease Hypertension Stroke Grandfather Cancer Grandmother Dementia History of heart disease 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 Well-developed patient, in mild distress. HEAD: Atraumatic. Normocephalic. EYES: Pupils equal round and reactive. Extraocular motions intact. No scleral icterus. No injection or drainage. ENT: Nose without bleeding, purulent drainage. Throat without erythema, tonsillar hypertrophy or exudate. Airway patent. NECK: Trachea midline. Non tender CARDIOVASCULAR: Regular rate and rhythm without murmurs, gallops, or rubs. RESPIRATORY: Clear to auscultation. Breath sounds equal bilaterally. No wheezes, rales, or rhonchi. GASTROINTESTINAL: Abdomen soft, llq, nondistended. EXTREMITIES: No edema or joint tenderness. BACK: Nontender without deformity or crepitance. No flank tenderness. NEURO: AOx3. SKIN: No rash or erythema of visible areas Initial Vital Signs Initial Vital Signs: Vital Signs Temperature 98.0 F 01/16/25 01:35 Pulse Rate 73 01/16/25 01:35 Respiratory Rate 20 01/16/25 01:35 Blood Pressure 126/79 01/16/25 01:35 Pulse Oximetry 94 01/16/25 01:35 Oxygen Delivery Method Room Air 01/16/25 01:35 Course Vital Signs Vital signs: Vital Signs - 8 hr 01/16/25 01:35 Temperature 98.0 F Pulse Rate 73 Respiratory Rate 20 Blood Pressure 126/79 Pulse Oximetry 94 Oxygen Delivery Method Room Air MDM - Abdominal Pain MDM Narrative Medical decision making narrative: All lab work, vital signs, nurse triage note, medication list, previous ER visits, and all imaging studies all reviewed. CT abdomen and pelvis showed no evidence of colitis diverticulitis bowel obstruction obstructive uropathy or acute appendicitis. Patient received fluids and Toradol here. Differential diagnosis includes diverticulitis appendicitis pancreatitis kidney stone kidney infection small-bowel obstruction constipation UTI. Normal white count sodium 135 glucose 120 LFTs all normal lipase 185, urine did not show any acute process. Discharge Plan Departure Patient Disposition: Home Clinical Impression: Abdominal pain, acute, left lower quadrant Acute low back pain Qualifiers: Back pain laterality: left Sciatica presence: without sciatica Qualified Code(s): M54.50 - Low back pain, unspecified Instructions: DI for Abdominal Pain-Adult Activity Restrictions/Additional Instructions: Return with new or worsening symptoms. Take ibuprofen and or Tylenol as needed for pain control. Clear liquid diet advance as tolerated. Follow up with Dr. Curtis at your next scheduled appointment. Prescriptions: No Action ramipril 10 mg capsule 10 mg PO QDAY Qty: 90 3RF metoprolol tartrate 25 mg tablet 25 mg PO .COMPLEX Qty: 135 3RF Rx Instructions: 25 mg in am; 12.5 mg at night hydrochlorothiazide 25 mg tablet 37.5 mg PO QDAY Qty: 135 3RF atorvastatin [Lipitor] 40 mg tablet 40 mg PO QDAY Qty: 90 3RF Mounjaro 2.5 mg/0.5 mL pen injector 2.5 mg SUBCUT QWEEK Qty: 2 0RF Rx Instructions: for 4 weeks Mounjaro 5 mg/0.5 mL pen injector 5 mg SUBCUT QWEEK Qty: 2 5RF aspirin 81 mg Tablet,Delayed Release (Dr/Ec) 81 mg PO DAILY nitroglycerin [Nitrostat] 0.4 mg Tablet, Sublingual 0.4 mg Sublingual [id number] PRN (Reason: Chest Pain) Qty: 30 0RF Referrals: Bryan Curtis MD [Primary Care Provider, Internal Medicine] Stand Alone Forms: Patient Portal/API
--- NOTE | 2025-01-16 01:42 | DI.CT.S_ITS ---
PROCEDURE: CT ABDOMEN PELVIS W CON INDICATIONS: abd/back pain TECHNIQUE: After the administration of intravenous contrast, axial sections acquired from the lung bases to the pubic symphysis. Coronal and sagittal reformats were performed. For radiation dose reduction, the following was used: automated exposure control, adjustment of mA and/or kV according to patient size. COMPARISON: None. FINDINGS: Image quality: Diagnostic Lower chest: Unremarkable lung bases. Coronary calcifications. Liver: Possible heterogeneous hepatic steatosis, not well assessed however on CT. Gallbladder and biliary system: Unremarkable, nondilated Pancreas: No ductal dilation Spleen: Nonenlarged Adrenals: No discrete nodules Kidneys: Suspect parapelvic cysts. No hydronephrosis. No solid renal mass Vessels and lymph nodes: The main portal vein is patent. No abdominal aortic aneurysm. No pathologic lymphadenopathy by size criteria. Bowel and peritoneum: No evidence of small bowel obstruction. No pathologic ascites or drainable abscess. Moderate overall fecal loading. Nondilated appendix Body wall: Unremarkable Pelvis: Bladder is unremarkable. Prostate is unremarkable on limited CT evaluation Bones: No aggressive appearing osseous abnormality. There are degenerative changes. Postsurgical posterior decompression changes also seen. IMPRESSION: Nondilated appendix. No small bowel obstruction. No drainable intra-abdominal fluid collection. [id number] degenerative changes of the lumbar spine. This could be better evaluated on MRI if necessary. No acute osseous abnormality on CT. Other findings above. No significant discrepancy from the preliminary report. Dictated by: Dave Ritter M.D. on 01/16/2025 at 9:40 Approved by: Dave Ritter M.D. on 01/16/2025 at 9:42
[2025-01-16] MEDS: KETOROLAC 30 MG/ML VIAL IV (02:00)
[2025-01-16] MEDS: LACTATED RINGERS 1,000 ML 1000 ML IV (02:00)
[2025-01-16 02:24] LABS: Add Manual Diff / Slide Review NO; Basophils Absolute Auto 0 /uL (0-100); Basophils Percent Auto 0.5 % (0-2); Eosinophils Absolute Auto 200 /uL (0-450); Eosinophils Percent Auto 2.3 % (2-4); Hematocrit 46.9 % (41-53); Hemoglobin 16.1 g/dL (13.5-17.5); Lymphocytes Absolute Auto 4000 /uL (1100-4500); Lymphocytes Percent Auto 40.1 % (25-40); Mean Corpuscular HGB Conc 34.4 % (30-36); Mean Corpuscular Hemoglobin 30.7 PG (26-34); Mean Corpuscular Volume 89.3 fL (80-100); Monocytes Absolute Auto 1000 /uL (0-900); Monocytes Percent Auto 9.9 % (3-14); Neutrophils Absolute Auto 4700 /uL (1500-7000); Neutrophils Percent Auto 47.2 % (50-75); Platelet Count 225 X10^3/uL (150-400); Red Blood Cell Count 5.25 X10^6/uL (4.5-5.9); Red Cell Distribution Width 13.3 % (11.6-14.8); White Blood Cell Count 9.9 X10^3/uL (4.5-11.0)
[2025-01-16 02:37] LABS: Alanine Aminotransferase 44 IU/L (<50); Albumin 4.5 g/dL (3.5-5.0); Albumin Globulin Ratio 1.3 (1.0-2.8); Alkaline Phosphatase 79 U/L (38-126); Aspartate Aminotransferase 35 IU/L (17-59); BUN Creatinine Ratio 25.3 (6-22); Bilirubin Total 0.8 mg/dL (0.2-1.3); Blood Urea Nitrogen 24 mg/dL (9-20); Calcium 9.2 mg/dL (8.4-10.2); Carbon Dioxide 26 mmol/L (22-32); Chloride 100 mmol/L (98-107); Estimated Glomerular Filt Rate > 60 mL/min (>60); Globulin 3.5 g/dL (1.7-4.1); Glucose 120 mg/dL (70-99); HEMOLYSIS 25 (0-50); Lipase 185 U/L (23-300); Potassium 3.5 mmol/L (3.4-5.1); Sodium 135 mmol/L (137-145)
== END 2025-01-16 04:18 | disposition home or self-care (01) ==
PROVIDERS: Emergency Provider Family Medicine; PCP Internal Medicine
DX: R10.32 Left lower quadrant pain (principal); M54.50 Low back pain, unspecified
CPT/HCPCS: 36415; 74177; 80053; 81003; 83690; 85025; 96361; 96374; 99284; J1885; Q9967

== ENCOUNTER → 2025-03-25 08:55 | Outpatient (CLI) | payer MEDICARE, SELFPAY ==
[2018-06-13 06:29] VITALS: BMI 35.2
[2025-03-25 10:10] LABS: Hemoglobin A1C% w Est Avg Glu 6.2 % (4.0-6.0)
[2025-03-25 10:29] LABS: Blood Urea Nitrogen 21 mg/dL (9-20); Calcium 9.7 mg/dL (8.4-10.2); Carbon Dioxide 29 mmol/L (22-32); Chloride 98 mmol/L (98-107); Cholesterol 191 mg/dL (140-199); Estimated Glomerular Filt Rate > 60 mL/min (>60); Glucose 118 mg/dL (70-99); HDL Cholesterol 40 mg/dL (40-60); HEMOLYSIS < 15 (0-50); Potassium 4.1 mmol/L (3.4-5.1); Sodium 137 mmol/L (137-145); Triglycerides 231 mg/dL (35-150)
== END ==
PROVIDERS: PCP Internal Medicine; Referring Provider Internal Medicine; Visit Provider Internal Medicine
DX: E11.69 Type 2 diabetes mellitus with other specified complication (principal); E78.5 Hyperlipidemia, unspecified; E78.2 Mixed hyperlipidemia
CPT/HCPCS: 36415; 80048; 80061; 83036; 84450